=== PATIENT | female | born 1965 | race Caucasian/White ===

== ENCOUNTER 2017-10-30 09:18 | Emergency (ER) | payer OTHER ==
[~2017-10-30] VITALS: Ht 152.4 cm; Wt 80.0 kg
[~2017-10-30 09:18] MED LIST: AMIO200T PO; Aspirin Chew PO; DOCU1CAP39 PO; FURO1TAB62 PO; LIPI40TA PO; METF1000 PO; METO25TA3 PO; NOVORP2 SQ; PLAV75TA29 PO; POTA8CAP PO; THERM PO
[2017-10-30 09:25] VITALS: BP 156/76; PULSE 94; RESP 20; TEMP 97.9; O2SAT 97
[2017-10-30] MEDS ORDERED: ONDANSETRON ODT 4 MG TAB PO ONE (09:45)
[2017-10-30] MEDS ORDERED: MORPHINE SULFATE 4 MG/ML INJ IV PUSH ONE ×2 (09:45→13:30)
[2017-10-30] MEDS ORDERED: SODIUM CHLORIDE 0.9% FLUSH 10 ML FLUSH IVF PRN (09:45)
[2017-10-30 09:47] VITALS: PULSE 80; RESP 20; O2SAT 100
--- NOTE | 2017-10-30 09:51 | PD ---
HPI Chief Complaint: Pain: Acute or Chronic Time Seen by Provider: 09:40 Travel History International Travel<30 days: No Contact w/Intl Traveler<30days: No Traveled to known affect area: No History of Present Illness HPI The patient is a 52-year-old female who presents to the emergency department for right lateral chest wall pain and right flank pain after falling this morning at 7 AM. The patient states she fell while she was in the shower, striking the right lateral aspect of her chest wall and abdomen on the tub. The patient states she has significant pain with inspiration, movement, and palpation. She does note some associated shortness of breath, nausea, without any vomiting. The patient does take Plavix with a history of previous coronary artery disease and CABG that was performed in 2016. The patient denies any head injury or loss of consciousness during the fall. She denies any accompanying anterior left chest wall pain, or difficulty moving her upper or lower extremities. Symptoms are moderate. There are no current alleviating factors. PFSH Past Medical History Hx Anticoagulant Therapy: Yes Blood Disorders: No Anxiety: No Depression: No Heart Rhythm Problems: No Cancer: No Cardiovascular Problems: Yes High Cholesterol: Yes Chest Pain: Yes Congestive Heart Failure: Yes Coronary Artery Disease: Yes Diabetes: Yes Patient Takes Glucophage: Yes Endocrine: No Genitourinary: No Hypertension: Yes Immune Disorder: No Medical other: Yes Musculoskeletal: No Neurologic: No Psychiatric: No Reproductive: No Respiratory: No Thyroid Disease: No Tetanus Vaccination: < 5 Years Influenza Vaccination: Yes ?: Not : 3 Para: 3 Past Surgical History Cardiac Surgery: Yes Oral Surgery: Yes Other Surgery: Yes (NOSE, tubal ligation) Social History Alcohol Use: No Tobacco Use: No Substance Use: No Allergies-Medications (Allergen,Severity, Reaction): Coded Allergies: No Known Allergies (Unverified Allergy, Unknown, 10/30/17) Reported Meds & Prescriptions Reported Meds & Active Scripts Active Plavix (Clopidogrel Bisulfate) 75 Mg Tab 75 Mg PO DAILY Metformin (Metformin HCl) 1,000 Mg Tab 1,000 Mg PO BIDPC With meals Metoprolol Tartrate 25 Mg Tab 25 Mg PO BID Lipitor (Atorvastatin Calcium) 40 Mg Tab 40 Mg PO HS Review of Systems Except as stated in HPI: all other systems reviewed are Neg General / Constitutional: No: Fever Cardiovascular: Positive: Chest Pain or Discomfort (Right lateral chest wall pain) Respiratory: Positive: Shortness of Breath, Pleuritic Pain Gastrointestinal: Positive: Nausea, Abdominal Pain, No: Vomiting Musculoskeletal: No: Myalgias, Edema, Pain Neurologic: No: Dizziness, Change in Mentation Physical Exam Narrative GENERAL: Awake, alert, pleasant 52-year-old female who appears her stated age and is in no acute respiratory distress. She does appear in moderate discomfort. SKIN: Focused skin assessment warm/dry. HEAD: Atraumatic. Normocephalic. EYES: No injection or drainage. ENT: No nasal bleeding or discharge. Mucous membranes pink and moist. NECK: Trachea midline. No JVD. CARDIOVASCULAR: Regular rate and rhythm. No murmur appreciated. Tenderness to palpation of the right lateral chest wall. No significant crepitus noted. RESPIRATORY: No accessory muscle use. Clear to auscultation. Breath sounds equal bilaterally. GASTROINTESTINAL: Abdomen soft, tender to palpation over the right lateral flank and right upper quadrant. MUSCULOSKELETAL: No obvious deformities. No clubbing. No cyanosis. No edema. Patient is able to flex her hips and knees bilaterally. NEUROLOGICAL: Awake and alert. No obvious cranial nerve deficits. Motor grossly within normal limits. Normal speech. PSYCHIATRIC: Appropriate mood and affect; insight and judgment normal. Data Data Last Documented VS Vital Signs Date Time Temp Pulse Resp B/P (MAP) Pulse Ox O2 Delivery O2 Flow Rate FiO2 10/30/17 12:57 97.9 86 16 143/84 (103) 99 Room Air Orders Orders Complete Blood Count With Diff (10/30/17 09:44) Prothrombin Time / Inr (Pt) (10/30/17:44) Act Partial Throm Time (Ptt) (10/30/17:44) Type And Screen (10/30/17:44) Chest, Single Ap (10/30/17:44) Ct Abd/Pel W Iv Contrast(Rout) (10/30/17:44) Ct Thorax/ Chest W Iv Contrast (10/30/17:44) Iv Access Insert/Monitor (10/30/17:44) Ecg Monitoring (10/30/17:44) Oximetry (10/30/17:44) Oxygen Administration (10/30/17:44) Morphine Inj (Morphine Inj) (10/30/17 09:45) Sodium Chloride 0.9% Flush (Ns Flush) (10/30/17 09:45) Ondansetron Odt (Zofran Odt) (10/30/17 09:45) Comprehensive Metabolic Panel (10/30/17 09:44) Iohexol 350 Inj (Omnipaque 350 Inj) (10/30/17 12:14) Ed Discharge Order (10/30/17 13:22) Morphine Inj (Morphine Inj) (10/30/17 13:30) Ketorolac Inj (Toradol Inj) (10/30/17 13:30) Labs Laboratory Tests Test 10/30/17 09:50 White Blood Count 9.7 TH/MM3 Red Blood Count 4.63 MIL/MM3 Hemoglobin 13.5 GM/DL Hematocrit 40.9 % Mean Corpuscular Volume 88.5 FL Mean Corpuscular Hemoglobin 29.3 PG Mean Corpuscular Hemoglobin Concent 33.1 % Red Cell Distribution Width 12.5 % Platelet Count 290 TH/MM3 Mean Platelet Volume 8.4 FL Neutrophils (%) (Auto) 76.5 % Lymphocytes (%) (Auto) 17.4 % Monocytes (%) (Auto) 5.0 % Eosinophils (%) (Auto) 0.6 % Basophils (%) (Auto) 0.5 % Neutrophils # (Auto) 7.4 TH/MM3 Lymphocytes # (Auto) 1.7 TH/MM3 Monocytes # (Auto) 0.5 TH/MM3 Eosinophils # (Auto) 0.1 TH/MM3 Basophils # (Auto) 0.0 TH/MM3 CBC Comment DIFF FINAL Differential Comment Prothrombin Time 10.0 SEC Prothromb Time International Ratio 1.0 RATIO Activated Partial Thromboplast Time 25.0 SEC Blood Urea Nitrogen 10 MG/DL Creatinine 0.86 MG/DL Random Glucose 309 MG/DL Total Protein 7.2 GM/DL Albumin 3.7 GM/DL Calcium Level 9.5 MG/DL Alkaline Phosphatase 77 U/L Aspartate Amino Transf (AST/SGOT) 44 U/L Alanine Aminotransferase (ALT/SGPT) 57 U/L Total Bilirubin 0.3 MG/DL Sodium Level 135 MEQ/L Potassium Level 5.2 MEQ/L Chloride Level 101 MEQ/L Carbon Dioxide Level 24.4 MEQ/L Anion Gap 10 MEQ/L Estimat Glomerular Filtration Rate 69 ML/MIN MDM Medical Decision Making Medical Screen Exam Complete: Yes Emergency Medical Condition: Yes Medical Record Reviewed: Yes Interpretation(s) Laboratory Tests Test 10/30/17 09:50 White Blood Count 9.7 TH/MM3 Red Blood Count 4.63 MIL/MM3 Hemoglobin 13.5 GM/DL Hematocrit 40.9 % Mean Corpuscular Volume 88.5 FL Mean Corpuscular Hemoglobin 29.3 PG Mean Corpuscular Hemoglobin Concent 33.1 % Red Cell Distribution Width 12.5 % Platelet Count 290 TH/MM3 Mean Platelet Volume 8.4 FL Neutrophils (%) (Auto) 76.5 % Lymphocytes (%) (Auto) 17.4 % Monocytes (%) (Auto) 5.0 % Eosinophils (%) (Auto) 0.6 % Basophils (%) (Auto) 0.5 % Neutrophils # (Auto) 7.4 TH/MM3 Lymphocytes # (Auto) 1.7 TH/MM3 Monocytes # (Auto) 0.5 TH/MM3 Eosinophils # (Auto) 0.1 TH/MM3 Basophils # (Auto) 0.0 TH/MM3 CBC Comment DIFF FINAL Differential Comment Prothrombin Time 10.0 SEC Prothromb Time International Ratio 1.0 RATIO Activated Partial Thromboplast Time 25.0 SEC Blood Urea Nitrogen 10 MG/DL Creatinine 0.86 MG/DL Random Glucose 309 MG/DL Total Protein 7.2 GM/DL Albumin 3.7 GM/DL Calcium Level 9.5 MG/DL Alkaline Phosphatase 77 U/L Aspartate Amino Transf (AST/SGOT) 44 U/L Alanine Aminotransferase (ALT/SGPT) 57 U/L Total Bilirubin 0.3 MG/DL Sodium Level 135 MEQ/L Potassium Level 5.2 MEQ/L Chloride Level 101 MEQ/L Carbon Dioxide Level 24.4 MEQ/L Anion Gap 10 MEQ/L Estimat Glomerular Filtration Rate 69 ML/MIN Last Impressions Chest X-Ray 10/30/17943 Signed Impressions: CONCLUSION: No acute cardiopulmonary abnormality is identified. Additionally, no displaced rib fracture is seen. Chest CT 10/30/17943 Signed Impressions: CONCLUSION: 1. Right ninth and 10th rib fractures. 2. Hepatic steatosis. Abdomen/Pelvis CT 10/30/17943 Signed Impressions: CONCLUSION: 1. Right eighth and ninth rib fractures. 2. Hepatic steatosis. 3. 2 midline hernia seen in the upper anterior abdominal wall and at the umbil icus containing mesenteric fat. These are stable. 4. Uterine enlargement. Differential Diagnosis Differential diagnosis includes rib fracture, pulmonary contusion, pneumothorax , hemothorax, flail chest, hepatic injury, intra-abdominal injury, musculoskeletal pain. Narrative Course IV was established, labs were drawn and sent, and the patient was placed on cardiac telemetry monitoring and continuous pulse oximetry monitoring. Chest x- ray was obtained. The patient was administered morphine 4 mg intravenously and Zofran [address] of the thorax and abdomen/pelvis with IV contrast was obtained. Chest x-ray was unremarkable. The patient was reevaluated, her pain had improved. Chest x-ray revealed no fracture, however, CT the thorax reveals fractures of the ninth and 10th ribs. However, there is no pneumothorax or hepatic injury noted, there is hepatic steatosis which is most likely chronic. The patient was reevaluated, still had mild pain, therefore, was administered Toradol and morphine. The patient will be discharged home on pain medications and incentive spirometry. She is advised to follow-up with her primary physician. Diagnosis Primary Impression: Multiple rib fractures Qualified Codes: S22.41XA - Multiple fractures of ribs, right side, initial encounter for closed fracture Patient Instructions: General Instructions Additional Instructions: Please provide the patient a copy of her CT results, x-ray results, and lab results at discharge. Follow-up with her primary physician. Incentive spirometry as directed. Return if symptoms worsen or progress. Med/Other Pt SpecificInfo: Prescription(s) given Scripts Hydrocodone-Acetaminophen ([place]) 10-325 Mg Tab 1 TAB PO Q6H Y for PAIN, #12 TAB 0 Refills Prov: Kodak Sandhu MD 10/30/17 Ibuprofen (Ibuprofen) 400 Mg Tab 400 MG PO Q6H Y for PAIN SCALE 1 TO 10, #20 TAB 0 Refills Prov: Kodak Sandhu MD 10/30/17 Disposition: DISCHARGE HOME Condition: Stable Kodak Sandhu MD Oct 30, 2017 09:51
--- NOTE | 2017-10-30 10:09 | RADRPT ---
EXAM DATE: 10/30/2017 10:06 AM EDT AGE/SEX: 52 years / Female INDICATIONS: Slipped and fell in the shower this morning, left flank/rib pain. CLINICAL DATA: This is the patient's initial encounter. Patient reports that signs and symptoms have been present for 1 day and indicates a pain score of 10/10. MEDICAL/SURGICAL HISTORY: . Congestive heart failure. heart attack, pneumonia CABG. [place] [facility] [place]. . FINDINGS: Portable AP view of the chest demonstrates a normal-sized cardiac silhouette with median sternotomy w ires present. EKG lines overlie the patient. No pleural effusion, airspace consolidation, or pneumoth orax is identified. The bones and soft tissues demonstrate no acute abnormality. CONCLUSION: No acute cardiopulmonary abnormality is identified. Additionally, no displaced rib fracture is seen. Electronically signed by: Mohit Bird MD 10/30/2017 10:08 AM EDT
[2017-10-30 10:16] LABS: AUTOMATED NEUTROPHIL # 7.4 TH/MM3 (1.8-7.7); BASOPHIL % 0.5 % (0.0-2.0); EOSINOPHIL # 0.1 TH/MM3 (0-0.4); EOSINOPHIL % 0.6 % (0.0-4.0); HEMATOCRIT 40.9 % (35.0-46.0); HEMOGLOBIN 13.5 GM/DL (11.6-15.3); LYMPH % 17.4 % (9.0-44.0); LYMPHOCYTE # 1.7 TH/MM3 (1.0-4.8); MEAN CELL VOLUME 88.5 FL (80.0-100.0); MEAN CORPUSCULAR HEMOGLOBIN 29.3 PG (27.0-34.0); MEAN CORPUSCULAR HGB CONC 33.1 % (32.0-36.0); MEAN PLATELET VOLUME 8.4 FL (7.0-11.0); MONOCYTE # 0.5 TH/MM3 (0-0.9); NEUT % 76.5 % (16.0-70.0); PLATELET COUNT 290 TH/MM3 (150-450); RED BLOOD COUNT 4.63 MIL/MM3 (4.00-5.30); RED CELL DISTRIBUTION WIDTH 12.5 % (11.6-17.2); WHITE BLOOD COUNT 9.7 TH/MM3 (4.0-11.0)
[2017-10-30 10:21] VITALS: BP 142/76; PULSE 76; RESP 17; TEMP 97.8; O2SAT 98
[2017-10-30 10:34] LABS: ALT (GPT) 57 U/L (10-53)
[2017-10-30 10:36] LABS: ALKALINE PHOSPHATASE 77 U/L (45-117); TOTAL BILIRUBIN ADULT 0.3 MG/DL (0.2-1.0); TOTAL PROTEIN 7.2 GM/DL (6.4-8.2)
[2017-10-30 10:38] LABS: ALBUMIN 3.7 GM/DL (3.4-5.0); AST (GOT) 44 U/L (15-37); BICARBONATE 24.4 MEQ/L (21.0-32.0); BLOOD UREA NITROGEN 10 MG/DL (7-18); CALCIUM 9.5 MG/DL (8.5-10.1); CHLORIDE 101 MEQ/L (98-107); CREATININE 0.86 MG/DL (0.50-1.00); GLOMERULAR FILTRATION RATE 69 ML/MIN (>89); GLUCOSE,RANDOM 309 MG/DL (74-106); SODIUM (NA) 135 MEQ/L (136-145)
[2017-10-30] MEDS ORDERED: IOHEXOL 350 MG/ML 10 ML VIAL (for RAD DIAG) IVCONTRAST ONE (12:14)
--- NOTE | 2017-10-30 12:31 | RADRPT ---
EXAM DATE: 10/30/2017 12:24 PM EDT AGE/SEX: 52 years / Female INDICATIONS: Slipped and fell in shower. Right rib pain. CLINICAL DATA: This is the patient's initial encounter. Patient reports that signs and symptoms have been present for 1 day and indicates a pain score of 10/10. MEDICAL/SURGICAL HISTORY: Cardiovascular disease. Congestive heart failure. Hypertension. Diabet es. Tubal ligation. RADIATION DOSE: 20.40 CTDI (mGy) ; Combined studies COMPARISON: [facility], CHEST SINGLE AP, 10/30/2017. . TECHNIQUE: Multiple contiguous axial images were obtained through the chest during bolus infusion of 92 ml Omnipaque 350 (iohexol) nonionic water-soluble contrast as a cumulative dose for multiple exa ms. Images were obtained in suspended respiration using multiple row detector helical technique. U sing automated exposure control and adjustment of the mA and/or kV according to patient size, radiati on dose was kept as low as reasonably achievable to obtain optimal diagnostic quality images. FINDINGS: Lungs: The lungs are symmetrically aerated. No infiltrates or nodular densities are seen. Mediastinum: The patient is status post sternotomy and coronary bypass surgery. Significant adenopat hy is seen. Pleurae: No evidence of focal thickening or pleural effusion. Axillae: Unremarkable. Bony Structures: There is a posterior lateral right ninth rib fracture. There appears to be a fractu re at the 10th lateral rib seen on the coronal reconstructed images. Miscellaneous: The examination was extended to include the upper abdomen, and both adrenal glands ar e normal in size and configuration. There is diffuse decreased attenuation to the liver. CONCLUSION: 1. Right ninth and 10th rib fractures. 2. Hepatic steatosis. Electronically signed by: Mohit Her MD 10/30/2017 12:30 PM EDT
--- NOTE | 2017-10-30 12:37 | RADRPT ---
EXAM DATE: 10/30/2017 12:29 PM EDT AGE/SEX: 52 years / Female INDICATIONS: Slipped and fell in shower. Right rib pain, right upper quadrant pain. CLINICAL DATA: This is the patient's initial encounter. Patient reports that signs and symptoms have been present for 1 day and indicates a pain score of 8/10. MEDICAL/SURGICAL HISTORY: Cardiovascular disease. Congestive heart failure. Hypertension. Di abetes. Tubal ligation. ORAL CONTRAST: No oral contrast ingested. RADIATION DOSE: 20.40 CTDI (mGy) ; Combined studies [place] [facility] [place]/21/2016. . TECHNIQUE: Multiple contiguous axial images were obtained through the abdomen and pelvis following b olus infusion of 92 ml Omnipaque 350 (iohexol) nonionic water-soluble contrast as a cumulative dose for multiple exams. No oral contrast ingested. Using automated exposure control and adjustment of t he mA and/or kV according to patient size, the radiation dose was kept as low as reasonably achievabl e to obtain optimal diagnostic quality images. FINDINGS: Lower Lungs: The visualized lower lungs are clear. The patient is status post sternotomy. Liver: There is diffuse decreased attenuation to the liver. No focal hepatic lesions are seen. The ga llbladder is unremarkable. Spleen: Homogeneous density without enlargement. Pancreas: Unremarkable without mass or calcification. Kidneys: Normal in size and shape. No evidence of hydronephrosis. There is minimal cystic change at the posterior left mid kidney Adrenal Glands: Unremarkable. Aorta: Scattered calcifications are seen in the arterial system. No aneurysm is seen. Bowel/Mesentery: The bowel loops are grossly unremarkable. The cecum and sigmoid colon have a normal configuration. Abdominal Wall: There are 2 midline hernias. One is seen in the upper abdomen adjacent to the liver containing mesenteric fat with the defect measuring 3 cm at the abdominal wall. The second hernia is seen in the middle to just right of midline at the level the umbilicus also containing mesenteric fat . The abdominal wall defect at this level is 1.6 cm in diameter. Retroperitoneum: No evidence of adenopathy in the retrocrural, para-aortic, or deep pelvic regions. Bladder: Contours are smooth. Reproductive Organs: The uterus is enlarged likely reflecting leiomyomatous change. Inguinal: The inguinal region is unremarkable without evidence of adenopathy. Bony Structures: There is right ninth and 10th rib fractures. There is degenerative change at the L5 -S1 level. CONCLUSION: 1. Right eighth and ninth rib fractures. 2. Hepatic steatosis. 3. 2 midline hernia seen in the upper anterior abdominal wall and at the umbilicus containing mesent layla fat. These are stable. 4. Uterine enlargement. Electronically signed by: Mohit Her MD 10/30/2017 12:35 PM EDT
[2017-10-30 12:57] VITALS: BP 143/84; PULSE 86; RESP 16; TEMP 97.9; O2SAT 99
[2017-10-30] MEDS ORDERED: KETOROLAC TROMETHAMINE 30 MG/ML (IVP) VIAL IV PUSH ONE (13:30)
[2017-10-30] MEDS ORDERED: IBUP1TAB5 PO (13:30)
[2017-10-30] MEDS ORDERED: HYDR-3366 PO (13:30)
[2017-10-30 13:40] VITALS: RESP 16
[2017-10-30 13:50] VITALS: BP 138/77; TEMP 97.8
== END 2017-10-30 13:50 | disposition home or self-care (01) ==
LOC: NEPE 09:18
DX: S22.41XA Multiple fractures of ribs, right side, initial encounter for closed fracture (principal); K76.0 Fatty (change of) liver, not elsewhere classified; E11.9 Type 2 diabetes mellitus without complications; E78.00 Pure hypercholesterolemia, unspecified; I11.0 Hypertensive heart disease with heart failure; I50.9 Heart failure, unspecified; I25.10 Atherosclerotic heart disease of native coronary artery without angina pectoris; W18.2XXA Fall in (into) shower or empty bathtub, initial encounter; Y93.E1 Activity, personal bathing and showering; Z79.02 Long term (current) use of antithrombotics/antiplatelets; Z79.84 Long term (current) use of oral hypoglycemic drugs
CPT/HCPCS: 71045; 71260; 74177; 80053; 85025; 85610; 85730; 86850; 86900; 86901; 96374; 96375; 96376; 99285; J1885; J2270; Q9967